=== PATIENT | male | born 1965 | race Caucasian/White ===

== ENCOUNTER 2019-05-04 07:32 | Day surgery (SDC) | payer BC ==
[2019-05-03 17:06] VITALS: BMI 27.6
[2019-05-04] MEDS ORDERED: PROPOFOL 20 ML ONE ×4 (08:51)
[2019-05-04 09:59] VITALS: TEMP 97.6
[2019-05-04 10:07] VITALS: BP 111/68; PULSE 70
--- NOTE | 2019-05-06 15:04 | PATH ---
Surgical Pathology Report Patient Name: JUSTIN ALBARRAN Med. Rec. #: [id number] /Age/Gender: 1965 (Age: 54) / M Account: [id number] Location: [facility] Taken: 05/04/2019 Received: 05/04/2019 Reported: 05/06/2019 Physicians: Isrrael Carolina M.D. Specimen(s) Received POLYP CECUM Clinical History Screening Postoperative diagnosis: Colon polyp Final Diagnosis CECUM, POLYP, BIOPSY: POLYPOID COLONIC MUCOSA WITH SMALL LYMPHOID AGGREGATE AND FOCAL SUPERFICIAL HYPERPLASTIC FEATURES. Electronically Signed Deja Tate M.D. Gross Description Received in formalin, labeled "biopsy polyp cecum" is a roach, irregular portion of soft tissue measuring 0.6 cm. in greatest dimension. The specimen is submitted in toto in one cassette. 05/05/2019 saudi05/05/2019
== END 2019-05-04 10:09 | disposition home or self-care (01) ==
LOC: FASU 07:32
PROVIDERS: ATTEND Internal Medicine Gastroenterology
PROC: 0DBH8ZX Excision of Cecum, Via Natural or Artificial Opening Endoscopic, Diagnostic (ICD-10-PCS; principal; 2019-05-04 09:23)
DX: Z12.11 Encounter for screening for malignant neoplasm of colon (principal); D12.0 Benign neoplasm of cecum
CPT/HCPCS: 88305-TC